=== PATIENT | female | born 1945 | race Caucasian/White ===

== ENCOUNTER 2025-03-19 14:01 | Emergency (ER) | payer MEDICARE, OTHER, SELFPAY ==
[2025-03-19 14:09] VITALS: BP 159/63
--- NOTE | 2025-03-19 14:52 | ED.GENMED ---
History of Present Illness
<USMAN Griffin - Last Filed: 03/19/25 17:50>
General
Chief Complaint: Crisis Evaluation
Source: family and ambulance crew
Exam Limitations: none
Time Seen by Provider: 03/19/25 14:20
Nursing documentation reviewed up to this point in time: agreed with
History of Present Illness
History of Present Illness:
79 yr old female presented via EMS.
PT currently lives with her sister , Lucila Bravo who I spoke with over the phone. Sister reports pt has a hx of dementia. Sister reports pt is punching herself in the chest yelling screaming. Last night sister reports pt was laying outside in
the street. This activity has been going on for the past one month. Sister reports she will state that she 'wants to .' Sister reports she found a pair of scissors in the belt loop of her pants. Sister filed a 302.
[facility] came to house today and recommended that she come to the hospital.
Prior to my exam patient was ambulatory trying to leave the treatment area however was redirectable. Patient is awake alert she is able to tell me her name but is confused other questions. She is able to follow commands. no focal deficits.
Phy Exam
<USMAN Griffin - Last Filed: 03/19/25 17:50>
General Physical Exam
General Presentation: no apparent distress
General age: appears stated age
General Skin: warm and dry
General Habitus: normal
General Mental: confused
General Hydration: appears well hydrated
Course
<USMAN Griffin - Last Filed: 03/19/25 17:50>
Orders/Labs/Results
Orders:
Orders
03/19/25 14:11
Crisis Consult Urgent
Reason for Consult: 302 by sister
03/19/25 14:54
IV Insert/Care/Rem.- Treatment PRN
03/19/25 15:22
Complete Blood Count/With Diff Urgent
03/19/25 15:25
observation [ED Special Safety Observation] ONCE
Observation level: One to One
Comment: flight risk, danger to self
03/19/25 15:51
Comprehensive Metabolic Panel Urgent
03/19/25 17:46
CT Head W/o Iv Contrast Urgent
Comment:
Reason For Exam: change in ms
03/19/25 20:04
Urinalysis Reflex To Culture Urgent
Date Specimen was Collected: 03/19/25
Time Specimen was Collected: 20:00
Abnormal Lab Results
03/19/25 03/19/25
15:22 15:51
RBC 3.61 L 10^6/uL
(4.20-5.40)
Hgb 11.4 L g/dL
(12.0-16.0)
Hct 34.7 L %
(37.0-47.0)
MCH 31.6 H pg
(27.0-31.0)
MCHC 32.9 L g/dL
(33.0-37.0)
Chloride 111 H mmol/L
(98-107)
Glucose 103 H mg/dl
(70-99)
03/19/25 15:22
03/19/25 15:51
Vital Signs
Initial and Last Documented VS:
Initial Vital Signs
Pulse Resp BP Pulse Ox
73 20 159/63 97
03/19/25 14:09 03/19/25 14:09 03/19/25 14:03/19/25 14:09
Last Documented Vital Signs
Temp Pulse Resp BP Pulse Ox
98.3 F 73 20 159/63 97
03/19/25 14:12 03/19/25 14:09 03/19/25 14:09 03/19/25 14:09 03/19/25 14:54
<Rashid Laboy MD - Last Filed: 03/19/25 21:21>
Orders/Labs/Results
Orders:
Orders
03/19/25 14:11
Crisis Consult Urgent
Reason for Consult: 302 by sister
03/19/25 14:54
IV Insert/Care/Rem.- Treatment PRN
03/19/25 15:22
Complete Blood Count/With Diff Urgent
03/19/25 15:25
observation [ED Special Safety Observation] ONCE
Observation level: One to One
Comment: flight risk, danger to self
03/19/25 15:51
Comprehensive Metabolic Panel Urgent
03/19/25 17:46
CT Head W/o Iv Contrast Urgent
Comment:
Reason For Exam: change in ms
03/19/25 20:04
Urinalysis Reflex To Culture Urgent
Date Specimen was Collected: 03/19/25
Time Specimen was Collected: 20:00
Abnormal Lab Results
03/19/25 03/19/25
15:22 15:51
RBC 3.61 L 10^6/uL
(4.20-5.40)
Hgb 11.4 L g/dL
(12.0-16.0)
Hct 34.7 L %
(37.0-47.0)
MCH 31.6 H pg
(27.0-31.0)
MCHC 32.9 L g/dL
(33.0-37.0)
Chloride 111 H mmol/L
(98-107)
Glucose 103 H mg/dl
(70-99)
03/19/25 15:22
03/19/25 15:51
Vital Signs
Initial and Last Documented VS:
Initial Vital Signs
Pulse Resp BP Pulse Ox
73 20 159/63 97
03/19/25 14:09 03/19/25 14:09 03/19/25 14:09 03/19/25 14:09
Last Documented Vital Signs
Temp Pulse Resp BP Pulse Ox
98.3 F 73 20 159/63 97
03/19/25 14:12 03/19/25 14:09 03/19/25 14:09 03/19/25 14:09 03/19/25 14:54
<USMAN Griffin - Last Filed: 03/19/25 17:50>
MDM/Problems Addressed
Differential Diagnosis Includes:
not limited to danger to self or others, worsening dementia, infection(UTI)
MDM/Problems Addressed:
As documented patient is 79-year-old female it was 302 by sister. Patient presents awake oriented to name only very confused but redirectable. Crisis involved telepsych to evaluate patient basic labs done including CBC which shows a normal white
count. She is afebrile with stable vital signs. Stable hemoglobin 11.4 unremarkable chemistries. Urine and CAT scan pending at this time. Patient will likely need admission.
Care of patient at this time transferred to Dr. Laboy.
<USMAN Griffin - Last Filed: 03/19/25 17:50>
*Pulse Oximetry
SaO2: 97
Oxygen Mode of Delivery: Room air
ED Attending Note
<USMAN Griffin - Last Filed: 03/19/25 17:50>
-
Portions of this chart may have been created with voice recognition software.� Occasional wrong word or��sound alike� substitutions may have occurred due to the inherent limitations of voice recognition software.
<Rashid Laboy MD - Last Filed: 03/19/25 21:21>
ED Attending Note
Patient seen and examined by attending physician: Yes
ED Attending Note:
Patient with history of dementia, who lives at home with her sister, presents to ED secondary to suicidal ideation along with self harming behavior. 302 petition filed by her sister. Per sister, last night, patient was lying on the street, hoping
to be run over by a car. Denies recent illness. Upon arrival, patient is alert and awake, has no complaints.
Physical Exam
General: no apparent distress, not acutely ill. afebrile
Head: nc/at. eomi
Neck: supple. no meningeal signs.
Heart: s1/s2 regular rate and rhythm
Lungs: no acute respiratory distress. clear bilaterally
Abdomen: normal bowel sounds. not tender.
Neuro: alert and oriented x 2. no focal neurological deficits
Skin: no rash
Psychiatric: well kept. anxious appearing
Extremities: no edema. no calf tenderness.
Patient appears to have unstable gait in ED. Spoke with her sister, who informs me that her gait has been ongoing for some time. As such, no indication for acute evaluation at this time. However, after psychiatric evaluation and treatment,
patient will require further evaluation as an outpatient via primary care physician.
Patient medically cleared. 302 upheld by telepsychiatry. Patient will be transferred to inpatient psychiatric facility for further evaluation and treatment.
Discharge Plan
Departure
Patient Disposition: Psych Facility
Date of Disposition: 03/19/25
Time of Disposition: 21:21
Patient Status:: 302
Discharge Problem:
Suicide attempt
Prescriptions:
No Action
quetiapine [Seroquel] 25 mg Tablet
75 mg PO HS
amlodipine [Norvasc] 2.5 mg Tablet
2.5 mg PO DAILY
atenolol 50 mg Tablet
50 mg PO DAILY
rosuvastatin [Crestor] 10 mg Tablet
10 mg PO DAILY
Referrals:
UNKNOWN - PT NOT,INTERVIEWE [Family Provider]
Interventions
Interventions:
*Risk Screen - Suicide Last Done: 03/19/25 14:19
*Neglect/Abuse Screening Last Done: 03/19/25 14:19
ED-Psychological Assessment Last Done: 03/19/25 15:24
Discharge Date and Time
Print Language: HEBREW
[2025-03-19 15:37] LABS: Hematocrit 34.7 % (37.0-47.0); Hemoglobin 11.4 g/dL (12.0-16.0); Mean Corp Hgb Conc. 32.9 g/dL (33.0-37.0); Mean Corpuscular Volume 96.1 fL (81.0-99.0); Nucleated Red Blood Cells % 0 %; Platelet Count 202 10^3/uL (130-400); Red Cell Dist. Width 13.1 % (11.5-14.5)
[2025-03-19 16:18] LABS: ALT (SGPT) 15 U/L (0-35); AST (SGOT) 22 U/L (14-36); Albumin 4.2 g/dl (3.5-5.0); Alkaline Phosphatase 104 U/L (38-126); Blood Urea Nitrogen 11 mg/dl (7-17); Calcium 9.2 mg/dl (8.4-10.2); Carbon Dioxide 27 mmol/L (22-30); Chloride 111 mmol/L (98-107); Glucose 103 mg/dl (70-99); Potassium 3.9 mmol/L (3.5-5.1); Sodium 142 mmol/L (135-145); Total Protein 6.9 g/dl (6.3-8.2); eGFR > 60.00
--- NOTE | 2025-03-19 18:05 | PHANOTE ---
med rec note- called family on file but no answer. patient has no ecw and mental not able to answer questions
[2025-03-19 20:16] LABS: Urine Character Clear (Clear)
== END 2025-03-20 01:47 ==
LOC: EMR 14:01
PROVIDERS: Nurse Practitioner; EMERGENCY PHYSICIAN Emergency Medicine
DX: T14.91XA Suicide attempt, initial encounter (principal); Y92.410 Unspecified street and highway as the place of occurrence of the external cause; F03.90 Unspecified dementia, unspecified severity, without behavioral disturbance, psychotic disturbance, mood disturbance, and anxiety
CPT/HCPCS: 99285; 70450; 80053; 81003; 85025